=== PATIENT | male | born 1965 | race Two or more races ===

== ENCOUNTER 2016-08-04 23:11 | Emergency (ER) | payer MEDICAID ==
[2016-08-04] MEDS ORDERED: NS 1,000 ML IV ONE (23:25)
--- NOTE | 2016-08-04 23:29 | EDPHY ---
HPI/HX/ROS/PE/MDM Narrative: Chief complaint: Chest pain HPI: 50-year-old male being brought in from the [facility] for evaluation of chest pain. Patient was seen earlier today at [facility] in [place]. He had a CT scan and blood work done there. It is unclear whether he had an ECG of a cardiac workup done. Patient states he started having abdominal pain a radiating to his chest about 4 o'clock this afternoon. No nausea or vomiting. No diarrhea. Does have a history of reflux but this does not feel the same. No shortness of breath. Has been waxing waning. He does tell me that he has been having some dark black bowel motions for the last 2 days. No hematemesis. No fevers or chills. At worst pain is a 10/10, currently is a 5/10. He did received aspirin and nitro by EMS. ROS: 10 point Review of Systems is negative except as noted in the HPI. Physical exam: Gen: Awake, Alert, No Distress HEENT: Nose: no rhinorrhea Eyes: PERRLA, EOMI Mouth: Moist mucosa Neck: Supple, no JVD Chest: nontender, lungs clear to auscultation Heart: S1, S2 normal, no murmur Abd: Soft, epigastric tenderness to palpation reproducing his presenting complaint, some voluntary guarding in the epigastrium Back: no CVA tenderness, no midline tenderness Ext: no edema, non-tender Skin: no rash Neuro: CN II-XII intact, Sensation grossly intact, Strength 5/5 in bilateral upper and lower extremities ED Course: 50-year-old male with epigastric pain. He did report some melena however he has brown stool is heme negative here. His H&H are normal. He has had no vomiting. Pain is improved with medications here. Symptoms are consistent with alcoholic gastritis. He does need further evaluation for possible peptic ulcer disease. Will discharge him on a proton pump inhibitor. Refer to Gastroenterology for endoscopy. He is return emergency department for worsening pain. Dark black tarry stools, lightheadedness, fainting, or any other concerns. - Data Points Laboratory Results: Laboratory Results 08/04/16 23:45 08/04/16 23:45 08/04/16 08/04/16 23:58 23:45 WBC 12.11 H 10^3/uL (3.80-9.50) RBC 3.46 L 10^6/uL (4.40-6.38) Hgb 12.4 L g/dL (13.7-17.5) Hct 34.2 L % (40.0-51.0) MCV 98.8 fL (81.5-99.8) MCH 35.8 H pg (27.9-34.1) MCHC 36.3 g/dL (32.4-36.7) RDW 14.3 % (11.5-15.2) Plt Count 81 L 10^3/uL (150-400) MPV 11.6 fL (8.7-11.7) Neut % (Auto) 86.5 H % (39.3-74.2) Lymph % (Auto) 8.4 L % (15.0-45.0) [place] % (Auto) 4.3 L % (4.5-13.0) Eos % (Auto) 0.1 L % (0.6-7.6) Baso % (Auto) 0.3 % (0.3-1.7) Nucleat RBC Rel Count 0.0 % (0.0-0.2) Absolute Neuts (auto) 10.47 H 10^3/uL (1.70-6.50) Absolute Lymphs (auto) 1.02 10^3/uL (1.00-3.00) Absolute Monos (auto) 0.52 10^3/uL (0.30-0.80) Absolute Eos (auto) 0.01 L 10^3/uL (0.03-0.40) Absolute Basos (auto) 0.04 10^3/uL (0.02-0.10) Absolute Nucleated RBC 0.00 10^3/uL (0-0.01) Immature Gran % 0.4 % (0.0-1.1) Immature Gran # 0.05 10^3/uL (0.00-0.10) PT 13.6 SEC (12.0-15.0) INR 1.05 (0.83-1.16) APTT 25.0 SEC (23.0-38.0) Sodium 134 mEq/L (134-144) Potassium 3.3 L mEq/L (3.5-5.2) Chloride 100 mEq/L (97-110) Carbon Dioxide 24 mEq/l (22-31) Anion Gap 10 mEq/L (8-16) BUN 5 L mg/dL (7-23) Creatinine 0.8 mg/dL (0.7-1.3) Estimated GFR > 60 Glucose 89 mg/dL (70-100) Calcium 7.5 L mg/dL (8.5-10.4) Total Bilirubin 1.6 H mg/dL (0.1-1.4) Conjugated Bilirubin 0.4 mg/dL (0.0-0.5) Unconjugated Bilirubin 1.2 H mg/dL (0.0-1.1) AST 86 H IU/L (17-59) ALT 90 H IU/L (21-72) Alkaline Phosphatase 73 IU/L (38-126) Troponin I < 0.012 ng/mL (0-0.034) Total Protein 6.5 g/dL (6.3-8.2) Albumin 3.3 L g/dL (3.5-5.0) Lipase 59.0 IU/L (23-300) Stool Occult Bld Scrn NEGATIVE (NEGATIVE) Medications Given: Discontinued Medications Sodium Chloride (Ns) 1,000 mls @ 0 mls/hr IV ONCE ONE PRN Reason: Wide Open Stop: 08/04/16 23:26 Last Admin: 08/04/16 23:43 Dose: 1,000 mls Morphine Sulfate (Morphine) 4 mg IVP ONCE ONE Stop: 08/04/16 23:26 Last Admin: 08/04/16 23:43 Dose: 4 mg General Time Seen by Provider: 08/04/16 23:17 Initial Vital Signs: Initial Vital Signs Temperature (C) 37 C 08/04/16 23:20 Heart Rate 112 H 08/04/16 23:20 Respiratory Rate 18 08/04/16 23:20 Blood Pressure 133/87 H 08/04/16 23:20 O2 Sat (%) 95 08/04/16 23:20 O2 Delivery Mode Room Air Allergies/Adverse Reactions: No Known Allergies Allergy (Unverified 08/04/16 23:25) Home Medications: Medication Instructions Recorded FLUoxetine 08/04/16 PRILOSEC 08/04/16 Pantoprazole Sodium [Protonix 40mg 40 mg PO DAILY #30 tab 08/05/16 (*)] Departure - Departure Disposition: Home, Routine, Self-Care Clinical Impression: Gastritis Condition: Good Instructions: Gastritis (ED), Diet for Stomach Ulcers and Gastritis (ED) Additional Instructions: Follow up with your primary care doctor and Gastroenterology in 3-4 days for re- evaluation. Start taking daily antacid medication. Return emergency department for worsening pain, lightheadedness, fainting, or any other concerns. Referrals: NONE *PRIMARY CARE P,. [Primary Care Provider] - As per Instructions Porter Gonzalez MD [Medical Doctor] - As per Instructions Prescriptions: Pantoprazole Sodium [Protonix 40mg (*)] 40 mg PO DAILY #30 tab
--- NOTE | 2016-08-04 23:37 | CPEKG ---
Heart Rate: 101 RR Interval: 594 P-R Interval: 140 QRSD Interval: 76 QT Interval: 348 QTC Interval: 452 P [place]: 55 QRS [place]: 40 T Wave [place]: 44 EKG Severity - OTHERWISE NORMAL ECG - EKG Impression: SINUS TACHYCARDIA Electronically Signed By: Jose Manuel Lockhart 05-Aug-2016 07:47:34
[2016-08-04 23:53] LABS: % IMMATURE GRANULYOCYTES 0.4 % (0.0-1.1); ABSOLUTE IMMATURE GRANULOCYTES 0.05 10^3/uL (0.00-0.10); ADD DIFF? NO; ADD MORPH? NO; ADD SCAN? NO; ATYPICAL LYMPHOCYTE FLAG 0 (0-99); FRAGMENT RBC FLAG 0 (0-99); HEMATOCRIT 34.2 % (40.0-51.0); HEMOGLOBIN 12.4 g/dL (13.7-17.5); LEFT SHIFT FLG 0 (0-99); LIPEMIA HEMOLYSIS FLAG 90 (0-99); MEAN CELL HEMOGLOBIN 35.8 pg (27.9-34.1); MEAN CELL HEMOGLOBIN CONCENTR. 36.3 g/dL (32.4-36.7); MEAN CELL VOLUME 98.8 fL (81.5-99.8); MEAN PLATELET VOLUME 11.6 fL (8.7-11.7); PLATELET CLUMPS FLAG 10 (0-99); PLATELET COUNT 81 10^3/uL (150-400); RED BLOOD CELL COUNT 3.46 10^6/uL (4.40-6.38); RED CELL DISTRIBUTION WIDTH 14.3 % (11.5-15.2)
[2016-08-05 00:03] LABS: INR 1.05 (0.83-1.16); PROTIME(PATIENT) 13.6 SEC (12.0-15.0)
[2016-08-05 00:21] LABS: ALANINE AMINOTRANSFERASE 90 IU/L (21-72); ALBUMIN 3.3 g/dL (3.5-5.0); ALKALINE PHOSPHATASE 73 IU/L (38-126); ANION GAP 10 mEq/L (8-16); ASPARTATE AMINOTRANSFERASE 86 IU/L (17-59); BILIRUBIN,TOTAL 1.6 mg/dL (0.1-1.4); BILIRUBIN-CONJUGATED 0.4 mg/dL (0.0-0.5); BILIRUBIN-UNCONJUGATED 1.2 mg/dL (0.0-1.1); CALCIUM 7.5 mg/dL (8.5-10.4); CARBON DIOXIDE 24 mEq/l (22-31); CHLORIDE 100 mEq/L (97-110); CREATININE 0.8 mg/dL (0.7-1.3); GLOMERULAR FILTRATION RATE > 60; GLUCOSE 89 mg/dL (70-100); POTASSIUM 3.3 mEq/L (3.5-5.2); SODIUM 134 mEq/L (134-144); TOTAL PROTEIN 6.5 g/dL (6.3-8.2)
[2016-08-05 00:32] LABS: TROPONIN I < 0.012 ng/mL (0-0.034)
[2016-08-05 03:58] VITALS: BP 124/72; PULSE 81; RESP 16; TEMP 98.1; O2SAT 97
== END 2016-08-05 03:51 | disposition home or self-care (01) ==
DX: K29.70 Gastritis, unspecified, without bleeding (principal)
CPT/HCPCS: 96374

== ENCOUNTER 2017-05-02 14:29 | Emergency (ER) | payer MEDICAID ==
[2017-05-02 14:43] VITALS: RESP 18
--- NOTE | 2017-05-02 15:27 | EDPHY ---
H & P Stated Complaint: WANTS DETOX SENT FROM [facility] FOR EVAL Time Seen by Provider: 05/02/17 15:27 HPI/ROS: CHIEF COMPLAINT: Referred to [facility] by the [facility] HISTORY OF PRESENT ILLNESS: The patient was in the process of being taking to the [facility] by his son for his chronic alcohol dependence. The patient reportedly has a history of an alcohol withdrawal seizure 4 months ago. This prompted the [facility] to ask the patient to come to the ED for clearance. In the emergency department, the patient reports his last drink was earlier today. The patient denies any fall or trauma. It is unclear to me how motivated the patient is for sobriety. He is willing to let his son taken to the detox center. The patient takes no regular medications. The patient has no acute medical complaints. He denies any hallucinations, confusion, fever, vomiting or acute pain. REVIEW OF SYSTEMS: A comprehensive 10 point review of systems is otherwise negative aside from elements mentioned in the history of present illness. Source: Patient - Personal History Current Tetanus/Diphtheria Vaccine: No Current Tetanus Diphtheria and Acellular Pertussis (TDAP): No - Medical/Surgical History Hx Asthma: No Hx Chronic Respiratory Disease: No Hx Diabetes: No Hx Cardiac Disease: No Hx Renal Disease: No Hx Cirrhosis: No Hx Alcoholism: Yes Hx HIV/AIDS: No Hx Splenectomy or Spleen Trauma: No Other PMH: etoh spleenectomy bowel surgery - Social History Smoking Status: Former smoker - Physical Exam Exam: General Appearance: Alert, cooperative, no acute distress, alcohol on breath Eyes: Pupils equal and round no pallor or injection ENT, Mouth: Mucous membranes moist Respiratory: There are no retractions, lungs are clear to auscultation Cardiovascular: Regular rate and rhythm Gastrointestinal: Abdomen is soft and nontender, no masses, bowel sounds normal Neurological: A&O, normal motor function, normal sensory exam, normal cranial nerves Skin: Warm and dry, no rashes Musculoskeletal: Neck is supple nontender Extremities: symmetrical, full range of motion Psychiatric: Patient is oriented X 3, there is no agitation Constitutional: Initial Vital Signs Temperature (C) 36.8 C 05/02/17 14:37 Heart Rate 120 H 05/02/17 14:37 Respiratory Rate 18 05/02/17 14:37 O2 Sat (%) 96 05/02/17 14:37 O2 Delivery Mode Room Air Allergies/Adverse Reactions: No Known Allergies Allergy (Unverified 08/04/16 23:25) Home Medications: Medication Instructions Recorded NK [No Known Home Meds] 05/02/17 Medical Decision Making ED Course/Re-evaluation: The patient presents to the ED with alcohol intoxication without evidence of significant alcohol trauma. The patient is noted to be neurologically intact. He will be discharged to the [facility] with a prepack of Librium given his history of alcohol withdrawal seizure. The patient's exam does not suggest any evidence of a traumatic injury or acute infectious process. I do not feel that further ED workup is indicated at this point time. Differential Diagnosis: Differential diagnosis considered includes alcohol intoxication, alcohol withdrawal syndrome, alcohol withdrawal seizure Departure - Departure Disposition: Home, Routine, Self-Care Clinical Impression: Alcohol intoxication Condition: Good Additional Instructions: 1. Please go to the [facility] for further assistance of your alcohol dependence. 2. Return to the ED for the development of any severe pain, vomiting, seizure or other concerns. Referrals: [facility] [Outside] - As per Instructions
[2017-05-02] MEDS ORDERED: CHLORDIAZEPOXIDE 25MG PREPK#6 BTL TAKEHOME ONE (15:40)
[2017-05-02 15:49] VITALS: BP 139/100; PULSE 100; TEMP 99; O2SAT 92
== END 2017-05-02 15:52 | disposition home or self-care (01) ==
DX: F10.129 Alcohol abuse with intoxication, unspecified (principal); Z87.891 Personal history of nicotine dependence